=== PATIENT | female | born 1965 | race American Indian/Alaskan Native ===

== ENCOUNTER 2020-08-22 13:14 | Emergency (ER) | payer MEDICAID ==
[2020-08-22] MEDS ORDERED: ASPIRIN 325 MG TAB PO ONE (13:52)
[2020-08-22 15:27] LABS: Basophils % (Auto) 0.5 % (0.0-1.8); Eosinophils # (Auto) 0.2 K/mm3 (0.0-0.4); Eosinophils % (Auto) 2.7 % (0.0-4.3); Hematocrit 38.3 % (30.3-42.9); Hemoglobin 12.8 gm/dl (10.1-14.3); Lymphocytes # (Auto) 1.6 K/mm3 (1.2-5.4); Lymphocytes % (Auto) 26.9 % (13.4-35.0); Mean Corpuscular HGB Conc 33 % (30-34); Mean Corpuscular Volume 90 fl (79-97); Monocytes # (Auto) 0.4 K/mm3 (0.0-0.8); Monocytes % (Auto) 6.8 % (0.0-7.3); Platelet Count 158 K/mm3 (140-440); Red Blood Count 4.27 M/mm3 (3.65-5.03); Red Cell Distribution Width 16.2 % (13.2-15.2)
--- NOTE | 2020-08-22 15:46 | XRay Report ---
CHEST 2 VIEWS INDICATION / CLINICAL INFORMATION: Chest pain. Heart surgery in 2020 COMPARISON: None available. FINDINGS: SUPPORT DEVICES: None. HEART / MEDIASTINUM: Heart size is normal. Implantable cardiac loop recorder projects over the left a nterior chest wall. LUNGS / PLEURA: No significant pulmonary or pleural abnormality. No pneumothorax. ADDITIONAL FINDINGS: Healed left rib fractures. IVC filter in the upper abdomen. IMPRESSION: 1. No acute findings. 2. IVC Filter Recommendation: IVC filters should be removed if possible when they are no longer clini alejandro necessary. (1) Refer to the established IVC filter management plan; (2) If there is no establis hed plan for the patient's IVC filter, consider referral to interventional/vascular clinician on a no nemergent basis for evaluation. Signer Name: Colby Puga MD Signed: 08/22/2020 3:41 PM Workstation Name: [email or web address]
[2020-08-22 15:49] LABS: Alanine Aminotransferase 13 units/L (7-56); Albumin 3.5 g/dL (3.9-5); BUN/Creatinine Ratio 17; Blood Urea Nitrogen 15 mg/dL (7-17); Calcium 8.8 mg/dL (8.4-10.2); Hemolysis Index 12
--- NOTE | 2020-08-22 16:12 | Event Note ---
ED Screening Note Date of service: 08/22/20 Time: 16:06 ED Screening Note: 54-year-old -Chinese female presents to the emergency room for chest pain just prior to arrival. Patient states that it was located in the mid chest that radiates to her left arm. Patient has a history of a defibrillator and pacemaker that is placed. 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 Reports her stomach is giving her trouble. She denies any vomiting. Does admit to coughing. States that she was given nitroglycerin and aspirin by EMS in route. This initial assessment/diagnostic orders/clinical plan/treatment(s) is/are subject to change based on patients health status, clinical progression and re-assessment by fellow clinical providers in the ED. Further treatment and workup at subsequent clinical providers discretion. Patient/guardian urged not to elope from the ED as their condition may be serious if not clinically assessed and managed. Initial orders include:
--- NOTE | 2020-08-22 22:17 | Emergency Department Report ---
ED Chest Pain HPI - General Chief Complaint: Chest Pain Stated Complaint: CP Time Seen by Provider: 08/22/20 21:19 Source: patient, EMS Mode of arrival: Wheelchair Limitations: No Limitations - History of Present Illness Initial Comments: 54-year-old female presents to ED with chest pain, onset 45 minutes prior to arrival. Patient reports onset while sitting in a chair. Patient states pain is located in the left chest in the area of her pacemaker. 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 States she has been having some soreness in the area since the surgery. She denies any exertional chest pain. States pain is worse with movement of torso or palpation of the area. Denies any associated diaphoresis or vomiting. She reports some cough and also abdominal pain. She denies any fever, vomiting, diarrhea. Has not yet been vaccinated for COVID-19. MD Complaint: chest pain -: This afternoon Onset: during rest Pain Location: left chest Severity: moderate Severity scale (0 -10): 0 Quality: tightness Consistency: intermittent Improves With: nothing Worsens With: palpation, movement re: denies: nausea, vomting, diaphoresis, dyspnea Other Symptoms: cough. denies: fever Treatments Prior to Arrival: aspirin, nitroglycerin - Related Data Allergies Allergy/AdvReac Type Severity Reaction Status Date / Time lamotrigine [From Lamictal] Allergy Unknown Verified 08/22/20 13:48 Penicillins Allergy Unknown Verified 08/22/20 13:47 phenobarbital Allergy Unknown Verified 08/22/20 13:49 sulfamethoxazole Allergy Unknown Verified 08/22/20 13:49 [From Bactrim] trimethoprim [From Bactrim] Allergy Unknown Verified 08/22/20 13:49 Heart Score - HEART Score History: Slightly suspicious EKG: Normal Age: 45-65 Risk factors: > 3 risk factors or hx of atherosclerotic disease Troponin: < normal limit HEART Score: 3 - EKG Read Time Time EKG Completed: 13:48 EKG Read Time: 13:55 ED Review of Systems ROS: Stated complaint: CP Other details as noted in HPI Comment: All other systems reviewed and negative Constitutional: denies: chills, fever Respiratory: cough. denies: shortness of breath Cardiovascular: chest pain Gastrointestinal: abdominal pain. denies: nausea, vomiting, diarrhea ED Past Medical Hx - Past Medical History Previous Medical History?: Yes Hx Hypertension: Yes Hx CVA: Yes Additional medical history: defrillator, pacemaker, blood clots ED Physical Exam - General Limitations: No Limitations General appearance: alert, in no apparent distress, obese - Head Head exam: Present: atraumatic, normocephalic - Eye Eye exam: Present: normal appearance, EOMI - ENT ENT exam: Present: mucous membranes moist - Neck Neck exam: Present: normal inspection - Respiratory Respiratory exam: Present: normal lung sounds bilaterally, chest wall tenderness (Tenderness in area of pacemaker; no erythema present; area is clean, dry and intact). Absent: respiratory distress - Cardiovascular Cardiovascular Exam: Present: regular rate, normal rhythm - GI/Abdominal GI/Abdominal exam: Present: soft, tenderness (Mild periumbilical tenderness). Absent: distended - Extremities Exam Extremities exam: Present: normal inspection - Neurological Exam Neurological exam: Present: alert, oriented X3 - Psychiatric Psychiatric exam: Present: normal affect, normal mood - Skin Skin exam: Present: warm, dry, intact, normal color ED Course Vital Signs 08/22/20 08/22/20 08/22/20 13:32 16:35 21:58 Temperature 98.3 F 98.5 F Pulse Rate 62 59 L 53 L Respiratory 20 20 18 Rate Blood Pressure 154/86 Blood Pressure 125/78 [Right] O2 Sat by Pulse 99 100 98 Oximetry 08/22/20 08/22/20 08/22/20 22:00 22:02 22:04 Temperature Pulse Rate 57 L 56 L 53 L Respiratory 16 15 17 Rate Blood Pressure 147/122 147/122 Blood Pressure [Right] O2 Sat by Pulse 99 100 100 Oximetry 08/22/20 08/22/20 08/22/20 22:16 22:30 22:46 Temperature Pulse Rate 52 L 49 L 56 L Respiratory 16 13 14 Rate Blood Pressure 147/122 147/122 149/79 Blood Pressure [Right] O2 Sat by Pulse 99 98 100 Oximetry 08/22/20 08/22/20 08/22/20 23:00 23:16 23:22 Temperature Pulse Rate 52 L 53 L 52 L Respiratory 16 12 17 Rate Blood Pressure 149/79 161/90 144/67 Blood Pressure [Right] O2 Sat by Pulse 100 98 99 Oximetry 08/22/20 08/22/20 08/23/20 23:30 23:46 00:00 Temperature Pulse Rate 53 L 62 47 L Respiratory 10 L 14 15 Rate Blood Pressure 144/67 159/94 159/94 Blood Pressure [Right] O2 Sat by Pulse 100 100 99 Oximetry 08/23/20 08/23/20 08/23/20 00:32 00:46 01:00 Temperature Pulse Rate 59 L 57 L 51 L Respiratory 14 14 13 Rate Blood Pressure 159/94 159/94 141/74 Blood Pressure [Right] O2 Sat by Pulse 99 100 100 Oximetry 08/23/20 08/23/20 08/23/20 01:16 01:30 01:46 Temperature Pulse Rate 49 L 50 L 44 L Respiratory 19 12 16 Rate Blood Pressure 145/69 145/69 134/86 Blood Pressure [Right] O2 Sat by Pulse 98 99 98 Oximetry 08/23/20 08/23/20 02:00 02:16 Temperature Pulse Rate 52 L 54 L Respiratory 16 13 Rate Blood Pressure 134/86 125/80 Blood Pressure [Right] O2 Sat by Pulse 100 98 Oximetry ED Medical Decision Making - Lab Data Result diagrams: 08/22/20 14:55 08/22/20 14:55 - EKG Data -: EKG Interpreted by Ak EKG shows normal: sinus rhythm, axis, intervals, QRS complexes, ST-T waves Rate: bradycardia - EKG Data Interpretation: no acute changes - Radiology Data Radiology results: report reviewed, image reviewed - Medical Decision Making 54-year-old female presents to ED with complaint of chest pain in the area of her pacemaker. States pain is worse with movement, palpation. Patient states she wanted to make sure that it was not infected again. Patient is afebrile. She has some slight tenderness over the site, however the incisional scar appears clean dry and intact, no erythema present. EKG normal, troponin nega tive x3. Chest x-ray normal. Patient also reported that she was having some abdominal pain. CT abdomen pelvis is unremarkable. Vital signs stable. Labs normal. Patient feels comfortable with discharge home at this time. Referral form and patient information faxed to [facility] for close cardiology follow-up. 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 Reports recent move from [place]. - Differential Diagnosis Chest wall pain, ACS, bowel obstruction, UTI Critical care attestation.: If time is entered above; I have spent that time in minutes in the direct care of this critically ill patient, excluding procedure time. ED Disposition Clinical Impression: Chest wall pain Disposition: TO HOME OR SELFCARE Is pt being admited?: No Condition: Stable Instructions: Chest Wall Pain, [id number], Nonspecific Chest Pain, Adult, [id number] Referrals: PRIMARY MD [facility] [Primary Care Provider] - 3-5 Days [facility] [Provider Group] - 3-5 Days KARLA TINEO MD [Staff Physician] - 3-5 Days Time of Disposition: 01:50
--- NOTE | 2020-08-23 00:41 | Cat Scan Report ---
CT ABDOMEN AND PELVIS WITHOUT CONTRAST HISTORY: Patient complains of LEFT sided chest and abd pain.. COMPARISON: None. TECHNIQUE: CT images of the abdomen and pelvis were obtained without administration of intravenous co ntrast. All CT scans at this location are performed using CT dose reduction for ALARA by means of au tomated exposure control. FINDINGS: Lungs/bones: Lung bases are clear. There are degenerative changes in the spine and pelvis with no ac sitka osseous abnormality identified. Abdomen/pelvis: The liver, gallbladder, spleen, pancreas, adrenals, kidneys, and proximal GI tract a ppear unremarkable. An IVC filter is positioned below the level of the renal veins. A tiny phlebolith is seen adjacent to the right mid ureter, not to be confused with a ureteral stone. Urinary bladder and reproductive organs are unremarkable with no pelvic free fluid or acute colonic a bnormality identified. The appendix and terminal ileum appear normal. IMPRESSION: 1. No acute abnormality identified. Signer Name: Alan Bustillos MD Signed: 08/23/2020 12:37 AM Workstation Name: [id number]
[2020-08-23 01:19] LABS: Bilirubin,Urine NEG (Negative); Blood,Urine NEG (Negative); Color,Urine Yellow (Yellow); Mucus,Urine 2+ /HPF; Protein,Urine <15 mg/dL mg/dL (Negative); Urobilinogen,Urine < 2.0 mg/dL (<2.0)
[2020-08-23 02:32] VITALS: BP 125/80
--- NOTE | 2020-08-25 09:29 | Electrocardiograph Report ---
[facility] Test Date: 2020-08-22 Test Time: 13:48:28 Pat Name: RENEE SANTOS Department: Room: Gender: F [employer] Education Science Teacher: SHERRIE : 1965 Requested By: JANESSA PRESCOTT Order Number: [id number] Reading MD: Diaz Francois Measurements Intervals [place] Rate: 56 P: 100 IA: 220 QRS: 50 QRSD: 99 T: 59 QT: 409 QTc: 394 Interpretive Statements Sinus bradycardia Prolonged IA interval No previous ECG available for comparison Electronically Signed On 08-25-2020 9:29:09 EDT by Diaz Francois
== END 2020-08-23 02:00 | disposition home or self-care (01) ==
LOC: ED 13:14
DX: R07.89 Other chest pain (principal); R10.9 Unspecified abdominal pain; I10 Essential (primary) hypertension; Z86.73 Personal history of transient ischemic attack (TIA), and cerebral infarction without residual deficits; Z88.0 Allergy status to penicillin; Z88.8 Allergy status to other drugs, medicaments and biological substances
CPT/HCPCS: 36415; 71046; 74176; 80053; 81001; 84484; 85025; 93005